=== PATIENT | female | born 1995 | race Caucasian/White ===

== ENCOUNTER 2018-04-23 11:06 | Outpatient (CLI) | payer OTHER | END 2018-04-23 12:45 | disposition home or self-care (01) | LOC: OBT 11:06 → L-D 11:06 → OBT 12:45 | DX: O24.419 Gestational diabetes mellitus in pregnancy, unspecified control (principal); Z3A.39 39 weeks gestation of pregnancy | CPT/HCPCS: 76815; 76818 ==

== ENCOUNTER 2018-04-26 01:33 | Inpatient (IN) | payer OTHER ==
[2018-04-26] MEDS ORDERED: OXYTOCIN 30 UNITS/LR 500 ML IV (03:00)
[2018-04-26] MEDS ORDERED: METHYLERGONOVINE 0.2 MG INJ IM (03:00)
[2018-04-26] MEDS ORDERED: MISOPROSTOL 200 MCG TAB PR (03:00)
[2018-04-26] MEDS ORDERED: CARBOPROST 250 MCG INJ IM (03:00)
[2018-04-26] MEDS: MISOPROSTOL 50 MCG CAPSULE PO ×4 (03:22→16:05)
[2018-04-26] MEDS: LACTATED RINGER'S 1,000 ML IV ×3 (03:33→17:22)
[2018-04-26 04:00] LABS: ADD MAN DIFF? NO
[2018-04-26 04:02] LABS: BASOPHILS % 0.3 % (0.0-2.0); EOSINOPHILS % 0.3 % (0.0-7.0); HEMATOCRIT 35.3 % (37.0-47.0); LYMPHOCYTES # 2.1 10^3/ul (0.8-2.9); LYMPHOCYTES % 22.8 % (15.0-51.0); MEAN CORPUSCULAR HEMOGLOBIN 30.5 pg (29.0-33.0); MEAN CORPUSCULAR VOLUME 89.6 fl (82.0-101.0); MEAN PLATELET VOLUME 10.3 fl (7.4-10.4); MONOCYTE # 0.5 10^3/ul (0.3-0.9); MONOCYTES % 5.7 % (0.0-11.0); NEUTROPHIL # 6.5 10^3/ul (1.6-7.5); NEUTROPHILS % 70.6 % (39.0-77.0); PLATELET COUNT 257 10^3/UL (140-415); RED BLOOD COUNT 3.94 10^6/ul (4.20-5.40); RED CELL DISTRIBUTION WIDTH 12.5 % (11.5-14.5)
[2018-04-26 04:02] LABS: WHITE BLOOD COUNT 9.2 10^3/ul (4.8-10.8)
[2018-04-26 04:19] LABS: GLUCOSE 79 mg/dl (70-220)
[2018-04-26 04:26] LABS: INR 0.93; PROTIME 12.6 Sec (11.9-14.9)
[2018-04-26 04:27] LABS: PARTIAL THROMBOPLASTIN TIME 30.3 Sec (23.0-35.0)
[2018-04-26] MEDS: DEXTROSE 5%-LR 1,000 ML IV ×2 (08:32→21:34)
[2018-04-26] MEDS: BUTORPHANOL 2 MG INJ IV (08:35)
[2018-04-26] MEDS: ONDANSETRON 4 MG INJ IV (14:11)
[2018-04-26 15:04] LABS: RAPID PLASMA REAGIN NONREACTIVE (NR)
[2018-04-26] MEDS ORDERED: FENTAnyl 2MCG/ML-ROPIV 0.2% 100 ML (18:01)
[2018-04-26] MEDS ORDERED: NALBUPHINE HCL (10 MG/1 ML) INJ IV (18:30)
[2018-04-26] MEDS ORDERED: DIPHENHYDRAMINE 50 MG INJ IV (18:30)
[2018-04-26] MEDS ORDERED: NALOXONE (0.4 MG/ML) INJ IV (18:30)
[2018-04-26] MEDS: FENTAnyl 2MCG/ML-ROPIV 0.2% 100 ML BAG EPI (19:04)
[2018-04-26] MEDS: OXYTOCIN 30 UNITS/LR 500 ML IV (20:24)
[2018-04-27] MEDS: FENTAnyl 2MCG/ML-ROPIV 0.2% 100 ML BAG EPI (00:38)
[2018-04-27] MEDS: LACTATED RINGER'S 1,000 ML IV ×3 (02:22→18:48)
[2018-04-27] MEDS: ONDANSETRON 4 MG INJ IV (04:26)
[2018-04-27] MEDS: ACETAMINOPHEN 325 MG TAB PO ×2 (04:27→07:47)
[2018-04-27] MEDS: SOD CHLORIDE 0.9% 1,000 ML IV ×3 (04:48→20:30)
[2018-04-27] MEDS: AMPICILLIN 2 GM/NS (PMX) 100 ML IV (04:51)
[2018-04-27 05:24] LABS: LACTIC ACID 2.4 mmol/L (0.5-2.0)
[2018-04-27] MEDS: GENTAMICIN 80 MG/NS (PMX) 50 ML IVPB ×3 (05:38→19:58)
[2018-04-27] MEDS: CLINDAMYCIN 900 MG/D5W (PMX) 50 ML IVPB ×4 (06:09→23:35)
[2018-04-27] MEDS ORDERED: AMPICILLIN 1 GM/NS (PMX) 50 ML IV (08:00)
[2018-04-27] MEDS: LIDOCAINE 1% (MPF) 30 ML INJ INJ (08:51)
[2018-04-27] MEDS: OXYTOCIN 30 UNITS/LR 500 ML IV ×2 (09:11→11:26)
[2018-04-27 09:14] LABS: CBV Base Excess -5.9 mmol/L; CBV COHb 2.1 %; CBV Oxygen Sat 66.7 mmHG; Fraction OxyHgb Cord Venous 64.8 %; MODE ROOM AIR; MetHgb Cord Venous 0.8 %; Sample Type CBV; Site CORD
[2018-04-27] MEDS ORDERED: MAGNESIUM HYDROXIDE 30ML CUP PO (09:30)
[2018-04-27] MEDS ORDERED: ONDANSETRON 4 MG INJ IV (09:30)
[2018-04-27] MEDS ORDERED: NA PHOSPHATE/BIPHOS 133 ML ENEMA PR (09:30)
[2018-04-27] MEDS ORDERED: CARBOPROST 250 MCG INJ IM (09:30)
[2018-04-27] MEDS ORDERED: ZOLPIDEM 5 MG TAB PO (09:30)
[2018-04-27] MEDS ORDERED: HYDROCODONE/APAP (5/325) TAB PO (09:30)
[2018-04-27] MEDS ORDERED: METHYLERGONOVINE 0.2 MG INJ IM (09:30)
[2018-04-27] MEDS ORDERED: MISOPROSTOL 200 MCG TAB PR (09:30)
[2018-04-27] MEDS ORDERED: OXYTOCIN 30 UNITS/LR 500 ML IV (09:30)
[2018-04-27] MEDS ORDERED: DIPHENHYDRAMINE 25 MG CAP PO (09:30)
[2018-04-27] MEDS ORDERED: METHYLERGONOVINE 0.2 MG TAB PO (09:30)
[2018-04-27] MEDS: HYDROCODONE/APAP (5/325) TAB PO (12:50)
[2018-04-27] MEDS: LANOLIN HPA 1 PKT TOP (12:50)
[2018-04-27] MEDS: WITCH HAZEL/GLYCERIN PAD PR (12:50)
[2018-04-27] MEDS: BENZOCAINE 20% 56 ML SPRAY TOP (12:50)
[2018-04-27] MEDS: LACTATED RINGER'S 1,000 ML IV* ×2 (12:51→17:15)
[2018-04-27] MEDS: SENNA/DOCUSATE NA (8.6MG/50MG) TAB PO (21:04)
[2018-04-27] MEDS: IBUPROFEN 600 MG TAB PO (23:35)
[2018-04-28] MEDS: LACTATED RINGER'S 1,000 ML IV* ×3 (01:15→17:15)
[2018-04-28] MEDS: LACTATED RINGER'S 1,000 ML IV ×3 (02:48→18:48)
[2018-04-28] MEDS: GENTAMICIN 80 MG/NS (PMX) 50 ML IVPB ×3 (04:16→20:06)
[2018-04-28] MEDS: SOD CHLORIDE 0.9% 1,000 ML IV ×2 (04:30→12:30)
[2018-04-28] MEDS: CLINDAMYCIN 900 MG/D5W (PMX) 50 ML IVPB ×3 (05:34→18:03)
[2018-04-28] MEDS: IBUPROFEN 600 MG TAB PO ×2 (05:34→18:03)
[2018-04-28 06:20] LABS: ADD MAN DIFF? NO
[2018-04-28 06:31] LABS: BASOPHILS % 0.2 % (0.0-2.0); EOSINOPHILS # 0.1 10^3/ul (0.0-0.5); EOSINOPHILS % 0.6 % (0.0-7.0); HEMATOCRIT 30.3 % (37.0-47.0); HEMOGLOBIN 10.2 g/dl (12.0-16.0); LYMPHOCYTES # 1.6 10^3/ul (0.8-2.9); LYMPHOCYTES % 7.1 % (15.0-51.0); MEAN CORPUSCULAR HEMOGLOBIN 30.5 pg (29.0-33.0); MEAN CORPUSCULAR HGB CONC 33.7 g/dl (32.0-37.0); MEAN CORPUSCULAR VOLUME 90.7 fl (82.0-101.0); MEAN PLATELET VOLUME 10.4 fl (7.4-10.4); MONOCYTE # 0.8 10^3/ul (0.3-0.9); MONOCYTES % 3.7 % (0.0-11.0); NEUTROPHIL # 19.1 10^3/ul (1.6-7.5); NEUTROPHILS % 87.5 % (39.0-77.0); PLATELET COUNT 182 10^3/UL (140-415); RED BLOOD COUNT 3.34 10^6/ul (4.20-5.40); RED CELL DISTRIBUTION WIDTH 12.8 % (11.5-14.5)
[2018-04-28 06:31] LABS: WHITE BLOOD COUNT 21.8 10^3/ul (4.8-10.8)
[2018-04-28] MEDS: SENNA/DOCUSATE NA (8.6MG/50MG) TAB PO ×2 (08:48→20:06)
[2018-04-29] MEDS: CLINDAMYCIN 900 MG/D5W (PMX) 50 ML IVPB ×3 (00:18→11:21)
[2018-04-29] MEDS: GENTAMICIN 80 MG/NS (PMX) 50 ML IVPB (04:13)
[2018-04-29] MEDS: VARICELLA VACCINE LIVE/PF 1,350 UNIT/0.5 ML ML SC* (09:00)
[2018-04-29] MEDS: DIPHTH/TET/ACEL PERTUSS (ADULT) 0.5 ML VIAL IM* (09:00)
[2018-04-29] MEDS: MEASLES,MUMPS,RUBELLA VACCINE INJ SC* (09:00)
[2018-04-29 09:04] LABS: ADD MAN DIFF? NO
[2018-04-29 09:05] LABS: WHITE BLOOD COUNT 12.2 10^3/ul (4.8-10.8)
[2018-04-29 09:05] LABS: BASOPHIL # 0.1 10^3/ul (0.0-0.1); BASOPHILS % 0.4 % (0.0-2.0); EOSINOPHILS # 0.2 10^3/ul (0.0-0.5); EOSINOPHILS % 1.9 % (0.0-7.0); HEMATOCRIT 32.6 % (37.0-47.0); HEMOGLOBIN 10.8 g/dl (12.0-16.0); LYMPHOCYTES # 1.3 10^3/ul (0.8-2.9); LYMPHOCYTES % 10.6 % (15.0-51.0); MEAN CORPUSCULAR HEMOGLOBIN 30.5 pg (29.0-33.0); MEAN CORPUSCULAR HGB CONC 33.1 g/dl (32.0-37.0); MEAN CORPUSCULAR VOLUME 92.1 fl (82.0-101.0); MEAN PLATELET VOLUME 10.3 fl (7.4-10.4); MONOCYTE # 0.5 10^3/ul (0.3-0.9); MONOCYTES % 4.4 % (0.0-11.0); PLATELET COUNT 222 10^3/UL (140-415); RED BLOOD COUNT 3.54 10^6/ul (4.20-5.40); RED CELL DISTRIBUTION WIDTH 13.1 % (11.5-14.5)
[2018-04-29] MEDS: SENNA/DOCUSATE NA (8.6MG/50MG) TAB PO (09:24)
[2018-04-29 09:35] LABS: BLOOD UREA NITROGEN 9 mg/dl (7-20)
[2018-04-29 09:35] LABS: CREATININE 0.75 mg/dl (0.44-1.00)
== END 2018-04-29 17:00 | disposition home or self-care (01) | DRG 807 ==
LOC: L-D 01:33 → PP1 04-27 11:03
PROVIDERS: Obstetrics & Gynecology
PROC: 10E0XZZ Delivery of Products of Conception, External Approach (ICD-10-PCS; principal; ~2018-04-26)
DX: O48.0 Post-term pregnancy (principal); Z37.0 Single live birth; Z3A.40 40 weeks gestation of pregnancy
CPT/HCPCS: 36415; 62319; 82565; 82803; 82947; 82962; 83605; 84520; 85025; 85610; 85730; 86592; 86850; 86900; 86901; 87040; 87070; 87075; 87086; 88307; 90686; 90716; 99464